=== PATIENT | male | born 1985 | race Two or more races ===

== ENCOUNTER 2020-04-19 12:07 | Emergency (ER) | payer SELFPAY ==
[~2020-04-19] VITALS: Ht 172.7 cm; Wt 77.0 kg
[2020-04-19 12:55] LABS: BILIRUBIN,URINE NEGATIVE (NEG); CLARITY,URINE CLEAR; COLOR,URINE YELLOW; NITRITE,URINE NEGATIVE (NEG); PROTEIN,URINE NEGATIVE (NEG-TRACE); UROBILINOGEN,URINE 0.2 mg/dL (0.2 mg/dL)
[2020-04-19 13:05] LABS: BACTERIA,URINE 0 /HPF (0-FEW); RBC,URINE 0 /HPF (0-2); WBC,URINE OCC /HPF (0-4)
[2020-04-19 13:21] LABS: BASO % 1 % (0-3); EOS # 0.2 x10^3/uL (0.0-0.7); EOS % 5 % (0-3); HEMATOCRIT 44.6 % (39.0-53.0); HEMOGLOBIN 15.1 g/dL (13.0-17.5); LYMPH # 1.9 x10^3/uL (1.0-4.8); LYMPH % 35 % (24-48); MEAN CORPUSCULAR HEMOGLOBIN 30 pg (25-35); MEAN CORPUSCULAR HGB CONC 34 g/dL (31-37); MEAN CORPUSCULAR VOLUME 87 fL (79-100); MONO # 0.4 x10^3/uL (0.0-1.1); MONO % 8 % (0-9); NEUT # 2.7 x10^3/uL (1.8-7.7); NEUT % 52 % (31-73); PLATELET COUNT 248 x10^3/uL (140-400); RED CELL DISTRIBUTION WIDTH 12.6 % (11.5-14.5); WHITE BLOOD COUNT 5.3 x10^3/uL (4.0-11.0)
[2020-04-19 13:23] VITALS: BP 127/78
[2020-04-19 13:26] LABS: CALCIUM 9.3 mg/dL (8.5-10.1); CREATININE 0.8 mg/dL (0.7-1.3); POTASSIUM 4.1 mmol/L (3.5-5.1)
[2020-04-19 13:32] LABS: ALBUMIN 4.4 g/dL (3.4-5.0); ALBUMIN/GLOBULIN RATIO 1.2 (1.0-1.7); TOTAL BILIRUBIN 0.3 mg/dL (0.2-1.0); TOTAL PROTEIN 8.1 g/dL (6.4-8.2)
[2020-04-19] MEDS ORDERED: CONTRAST GIVEN. MC PRN (13:45)
[2020-04-19] MEDS ORDERED: IOHEXOL 300 MG/ML 100ML VIAL. IV ONE (13:45)
--- NOTE | 2020-04-19 14:11 | RAD ---
Study: CT abdomen/pelvis with intravenous contrast Indication: Abdominal pain. Nodules. Comparison: None. Technique: Helical CT imaging performed of the abdomen and pelvis after the intravenous administration of 75 cc Omnipaque 300 contrast. Sagittal and coronal reformats were obtained. One or more of the following individualized dose reduction techniques were utilized for this examination: 1. Automated exposure control 2. Adjustment of the mA and/or kV according to patient size 3. Use of iterative reconstruction technique. Findings: Unremarkable visualized lungs and mediastinal contents. Unremarkable liver, gallbladder, biliary tree, pancreas, spleen and adrenal glands. Unremarkable kidneys, ureters and bladder. The prostate is normal in size. Several colonic diverticuli without diverticulitis. Normal appendix. Nonobstructed small bowel. Normally located ligament of Treitz. Unremarkable stomach. Patent portal veins and superior mesenteric vein. Normal aortic caliber. No lymphadenopathy. No free fluid or gas. Symmetric muscular bulk. No localized abnormality of the subcutaneous fat. No acute or aggressive osseous process. Left eccentric disc bulge at L4-L5 without evidence for severe central canal stenosis but the left lateral recess may be narrowed. Impression: 1. No acute abnormality seen throughout the abdomen or pelvis. 2. Incompletely characterized disc bulge eccentric to the left at L4-L5 which could narrow the left lateral recess. Recommend correlation for any symptoms in the left L5 nerve root distribution. As deemed clinically necessary, nonemergent/outpatient MRI could be performed to better characterize. Electronically signed by: RUBEN BOSWELL MD (04/19/2020 2:08 PM) [id number]
--- NOTE | 2020-04-19 15:09 | PHYS DOC ---
Past Medical History Past Medical History: No Pertinent History Past Surgical History: No Surgical History Smoking Status: Never Smoker Alcohol Use: Occasionally General Adult EDM: Chief Complaint: FLANK PAIN HPI: HPI: 34-year-old male who denies any significant past medical history, has no routine primary care, moved here 10 years ago from [facility], presents to the ED with complaints of abdominal wall "painful lumps" located over both mid axillary lines of patient's abdomen, back and right forearm, for the past 2 years. Pt denies any surgical history, IV drug use or skin popping or local injections to the skin sites. States his girlfriend is currently being seen in the ed. Review of Systems: Review of Systems: Constitutional: Denies fever or chills. [] Eyes: Denies change in visual acuity. [] HENT: Denies nasal congestion or sore throat. [] Respiratory: Denies cough or shortness of breath. [] Cardiovascular: Denies chest pain or edema. [] Hemoptysis GI: Denies nausea, vomiting, bloody stools, ulna, hematochezia, hematemesis or diarrhea. [] : Denies dysuria. [] Hematuria or flank pain Musculoskeletal: Denies back pain or joint pain. [] Integument: Denies rash. [] Neurologic: Denies headache, focal weakness or sensory changes. [] Endocrine: Denies polyuria or polydipsia. [] Lymphatic: Denies swollen glands. [] Psychiatric: Denies depression or anxiety. [] Heart Score: Risk Factors: Risk Factors: DM, Current or recent (<one month) smoker, HTN, HLP, family history of CAD, obesity. Risk Scores: Score 0 - 3: 2.5% MACE over next 6 weeks - Discharge Home Score 4 - 6: 20.3% MACE over next 6 weeks - Admit for Clinical Observation Score 7 - 10: 72.7% MACE over next 6 weeks - Early Invasive Strategies Current Medications: Current Medications Medications (Trade) Dose Ordered Sig/Arnold Start Time Stop Time Status Last Admin Dose Admin Info (CONTRAST GIVEN -- Rx MONITORING) 1 each PRN DAILY PRN 04/19/20 13:45 04/21/20 13:44 Iohexol (Omnipaque 300 Mg/ml) 75 ml 1X ONCE 04/19/20 13:45 04/19/20 13:46 DC 04/19/20 13:40 75 ML Allergies: Allergies: Allergies Coded Allergies Type Severity Reaction Last Updated Verified No Known Drug Allergies 04/19/20 No Physical Exam: PE: Constitutional: Well developed, well nourished, no acute distress, non-toxic appearance. []obese HENT: Normocephalic, atraumatic, Eyes: EOMI, conjunctiva normal, no discharge. [] Neck: Normal range of motion, supple, n Cardiovascular:Heart rate regular rhythm, no murmur [] Lungs & Thorax: Bilateral breath sounds clear to auscultation [] Abdomen: Bowel sounds normal, soft, no tenderness, no masses, no pulsatile masses, multiple skin nodules (feels like scar tissue vs fat deposition/early lipomas) over lower abdomen, back and right forearm, no erythema or induration or external scars Skin: Warm, dry, no erythema, no rash. [] Back: No tenderness, no CVA tenderness. [] Extremities: No tenderness, no cyanosis, no clubbing, ROM intact, no edema. [] Neurologic: Alert and oriented X 3, normal motor function, normal sensory function, no focal deficits noted. [] Psychologic: Affect normal, judgement normal, mood normal. [] Current Patient Data: Labs: Laboratory Tests Test 04/19/20 12:14 04/19/20 13:06 Urine Collection Type Unknown Urine Color Yellow Urine Clarity Clear Urine pH 5.0 (<5.0-8.0) Urine Specific [place]verne 1.025 (1.000-1.030) Urine Protein Negative mg/dL (NEG-TRACE) Urine Glucose (UA) Negative mg/dL (NEG) Urine Ketones (Stick) Negative mg/dL (NEG) Urine Blood Negative (NEG) Urine Nitrite Negative (NEG) Urine Bilirubin Negative (NEG) Urine Urobilinogen Dipstick 0.2 mg/dL (0.2 mg/dL) Urine Leukocyte Esterase Negative (NEG) Urine RBC 0 /HPF (0-2) Urine WBC Occ /HPF (0-4) Urine Bacteria 0 /HPF (0-FEW) Urine Mucus Marked /LPF White Blood Count 5.3 x10^3/uL (4.0-11.0) Red Blood Count 5.10 x10^6/uL (4.30-5.70) Hemoglobin 15.1 g/dL (13.0-17.5) Hematocrit 44.6 % (39.0-53.0) Mean Corpuscular Volume 87 fL (79-100) Mean Corpuscular Hemoglobin 30 pg (25-35) Mean Corpuscular Hemoglobin Concent 34 g/dL (31-37) Red Cell Distribution Width 12.6 % (11.5-14.5) Platelet Count 248 x10^3/uL (140-400) Neutrophils (%) (Auto) 52 % (31-73) Lymphocytes (%) (Auto) 35 % (24-48) Monocytes (%) (Auto) 8 % (0-9) Eosinophils (%) (Auto) 5 % (0-3) H Basophils (%) (Auto) 1 % (0-3) Neutrophils # (Auto) 2.7 x10^3/uL (1.8-7.7) Lymphocytes # (Auto) 1.9 x10^3/uL (1.0-4.8) Monocytes # (Auto) 0.4 x10^3/uL (0.0-1.1) Eosinophils # (Auto) 0.2 x10^3/uL (0.0-0.7) Basophils # (Auto) 0.0 x10^3/uL (0.0-0.2) Sodium Level 140 mmol/L (136-145) Potassium Level 4.1 mmol/L (3.5-5.1) Chloride Level 107 mmol/L (98-107) Carbon Dioxide Level 26 mmol/L (21-32) Anion Gap 7 (6-14) Blood Urea Nitrogen 19 mg/dL (8-26) Creatinine 0.8 mg/dL (0.7-1.3) Estimated GFR (Cockcroft-Gault) 110.0 BUN/Creatinine Ratio 24 (6-20) H Glucose Level 109 mg/dL (70-99) H Calcium Level 9.3 mg/dL (8.5-10.1) Total Bilirubin 0.3 mg/dL (0.2-1.0) Aspartate Amino Transferase (AST) 27 U/L (15-37) Alanine Aminotransferase (ALT) 99 U/L (16-63) H Alkaline Phosphatase 90 U/L (46-116) Total Protein 8.1 g/dL (6.4-8.2) Albumin 4.4 g/dL (3.4-5.0) Albumin/Globulin Ratio 1.2 (1.0-1.7) Laboratory Tests 04/19/20 13:06 Laboratory Tests 04/19/20 13:06 Vital Signs: Vital Signs Date Time Temp Pulse Resp B/P (MAP) Pulse Ox O2 Delivery O2 Flow Rate FiO2 04/19/20 13:23 98.2 81 16 127/78 (94) 98 Room Air 98.2 EKG: EKG: [] Radiology/Procedures: Radiology/Procedures: IMAGING REPORT Signed PATIENT: EVI ODONNELL ACCOUNT: [id number] : 1985 LOCATION: ER AGE: 34 SEX: M EXAM STATUS: REG ER ORD. PHYSICIAN: DANIEL ESTEVEZ DO REASON: abdominal pain, nodules PROCEDURE: CT ABD PELV W/ IV CONTRST ONLY Study: CT abdomen/pelvis with intravenous contrast Indication: Abdominal pain. Nodules. Comparison: None. Technique: Helical CT imaging performed of the abdomen and pelvis after the intravenous administration of 75 cc Omnipaque 300 contrast. Sagittal and coronal reformats were obtained. One or more of the following individualized dose reduction techniques were utilized for this examination: 1. Automated exposure control 2. Adjustment of the mA and/or kV according to patient size 3. Use of iterative reconstruction technique. Findings: Unremarkable visualized lungs and mediastinal contents. Unremarkable liver, gallbladder, biliary tree, pancreas, spleen and adrenal glands. Unremarkable kidneys, ureters and bladder. The prostate is normal in size. Several colonic diverticuli without diverticulitis. Normal appendix. Nonobstructed small bowel. Normally located ligament of Treitz. Unremarkable stomach. Patent portal veins and superior mesenteric vein. Normal aortic caliber. No lymphadenopathy. No free fluid or gas. Symmetric muscular bulk. No localized abnormality of the subcutaneous fat. No acute or aggressive osseous process. Left eccentric disc bulge at L4-L5 without evidence for severe central canal stenosis but the left lateral recess may be narrowed. Impression: 1. No acute abnormality seen throughout the abdomen or pelvis. 2. Incompletely characterized disc bulge eccentric to the left at L4-L5 which could narrow the left lateral recess. Recommend correlation for any symptoms in the left L5 nerve root distribution. As deemed clinically necessary, nonemergent/outpatient MRI could be performed to better characterize. Electronically signed by: RUBEN BOSWELL MD (04/19/2020 2:08 PM) [id number] DICTATED and SIGNED BY: RUBEN BOSWELL MD DATE: 04/19/20 1406 Course & Med Decision Making: Course & Med Decision Making Pertinent Labs and Imaging studies reviewed. (See chart for details) Concern for chronic skin findings for the past 2 years that could represent early lipomas, no obvious signs of infection. CT abdomen pelvis with no lymphadenopathy or subcutaneous skin findings. Suspect nonemergent pathology. Encouraged urgent outpatient follow-up with PMD. Life-threatening processes were considered but are low suspicion at this time, given history and physical exam. Pt was educated on all prescription medications and adverse effects. All patient's questions were answered and pt was stable at time of discharge. I spoken with the patient and her caregivers. I explained the patient's condition, diagnoses and treatment plan based on the information available to me at this time. I have answered the patient and her caregiver's questions and addressed any concerns. The patient and her caregivers have a good understanding of patient's diagnosis, condition and treatment plan as can be expected at this point. Vital signs have been stable. Patient's condition is stable and appropriate for discharge from the emergency department. Patient will pursue further outpatient evaluation with primary care physician or other designated or consulting physician as outlined in the discharge instructions. The patient and/or caregivers are agreeable to this plan of care and follow-up instructions have been explained in detail. The patient and/or caregivers have received these instructions in written form and have expressed an understanding of the discharge instructions. The patient and/or caregivers are aware that any significant change of condition or worsening of symptoms should prompt immediate return to this or the closest emergency department or call to 911. Radha Disclaimer: Radha Disclaimer: This electronic medical record was generated, in whole or in part, using a voice recognition dictation system. Departure Departure Impression: Primary Impression: Abdominal pain Disposition: HOME, SELF-CARE Condition: STABLE Referrals: NO PCP (PCP) Patient Instructions: Abdominal Pain Additional Instructions: Rocío Du MD-in1-2 weeks Primary Specialties [facility], [place] Address: [address] [place] [id number] Justicifation of Admission Dx: Justifications for Admission: Justification of Admission Dx: N/A DANIEL ESTEVEZ DO Apr 19, 2020 15:09
[2020-04-19 15:32] LABS: AMPHETAMINE/METHAMPHETAMINE NEG (NEG); BARBITURATES NEG (NEG); BENZODIAZEPINES NEG (NEG); CANNABINOIDS NEG (NEG); COCAINE NEG (NEG); METHADONE NEG (NEG); OPIATES NEG (NEG); PHENCYCLIDINE NEG (NEG)
== END 2020-04-19 16:20 | disposition home or self-care (01) ==
LOC: ER 12:07
DX: R10.30 Lower abdominal pain, unspecified (principal); M54.9 Dorsalgia, unspecified; M79.631 Pain in right forearm; R19.00 Intra-abdominal and pelvic swelling, mass and lump, unspecified site; R22.31 Localized swelling, mass and lump, right upper limb
CPT/HCPCS: 36415; 74177; 80053; 80307; 81001; 85025; 99285; Q9967